=== PATIENT | female | born 1955 | race Caucasian/White ===

== ENCOUNTER → 2016-11-04 | Outpatient (CLI) | payer BC ==
[2016-11-04 12:50] LABS: CREATININE, URINE 91.1 MG/DL (15-500)
[2016-11-04 13:45] LABS: BILIRUBIN,TOTAL 0.6 mg/dL (0.3-1.2); BUN/CREATININE RATIO 19.09 (6-20); CALCIUM 9.3 mg/dL (8.7-10.7); CREATININE 1.1 mg/dL (0.50-1.20); POTASSIUM 3.9 meq/L (3.8-5.2); TOTAL PROTEIN 7.6 g/dL (6.1-8.0)
[2016-11-04 13:46] LABS: LDL CHOLESTEROL,CALCULATED 88.8 mg/dL
[2016-11-04 13:54] LABS: BASOPHILS # (AUTO) 0.07 10*3/UL; BASOPHILS % (AUTO) 0.8 % (0-1); EOSINOPHILS % (AUTO) 3.4 % (0-8); HEMATOCRIT 39.5 % (37.0-47.0); HEMOGLOBIN 12.7 g/dL (12.0-16.0); IMM GRAN % (AUTO) 0.1 % (0-5); IMM GRAN# (AUTO) 0.01 10*3/UL; LYMPHOCYTES # (AUTO) 1.64 10*3/uL; MEAN CORPUSCULAR HEMOGLOBIN 27.7 PG (27-31); MEAN CORPUSCULAR HGB CONC 32.2 g/dL (33-37); MEAN PLATELET VOLUME 11.2 FL (7.4-12.2); MONOCYTES # (AUTO) 0.59 10*3/UL (0.3-0.8); MONOCYTES % (AUTO) 6.8 % (5-15); NEUTROPHILS # (AUTO) 6.04 10*3/UL; NEUTROPHILS % (AUTO) 69.9 % (50-80); RDW COEFFICIENT OF VARIATION 14.2 % (11.5-14.5); RED BLOOD COUNT 4.58 10^6/uL (4.20-5.40); WHITE BLOOD COUNT 8.64 10^3/uL (4.8-10.8)
[2016-11-04 13:57] LABS: PLATELET MORPHOLOGY COMMENT NORMAL MORPHOLOGY (NORM)
[2016-11-04 14:13] LABS: HEMOGLOBIN A1C 6.59 % (4.2-6.0); MEAN BLOOD GLUCOSE (CALC) 133.447 mg/dL
== END ==
LOC: LAB 11:49
PROVIDERS: ATTEND Nurse Practitioner Family
DX: Z00.00 Encounter for general adult medical examination without abnormal findings (principal); E11.9 Type 2 diabetes mellitus without complications; E05.90 Thyrotoxicosis, unspecified without thyrotoxic crisis or storm
CPT/HCPCS: 36415; 80053; 80061; 82043; 83036; 84443; 85025

== ENCOUNTER → 2017-03-20 | Outpatient (CLI) | payer BC ==
[2017-03-20 11:45] LABS: HEMOGLOBIN A1C 7.07 % (4.2-6.0)
[2017-03-20 12:29] LABS: CREATININE, URINE 56.7 MG/DL (15-500)
== END ==
LOC: LAB 11:21
PROVIDERS: ATTEND Nurse Practitioner Family
DX: E11.9 Type 2 diabetes mellitus without complications (principal)
CPT/HCPCS: 36415; 82043; 83036